=== PATIENT | male | born 1950 | race Caucasian/White ===

== ENCOUNTER 2017-06-02 09:35 | Emergency (ER) | payer MEDICARE, OTHER ==
[~2017-06-02] VITALS: Ht 180.3 cm; Wt 195.8 kg
[2017-06-02] MEDS ORDERED: AMLO10TA2 PO (09:59)
[2017-06-02] MEDS ORDERED: MULT1TAB11 PO (09:59)
[2017-06-02] MEDS ORDERED: BUPR150T3 PO (09:59)
[2017-06-02] MEDS ORDERED: SERT-138 PO (09:59)
[2017-06-02] MEDS ORDERED: LOSA25TA8 PO (09:59)
[2017-06-02] MEDS ORDERED: COLE1TAB PO (09:59)
[2017-06-02 11:47] VITALS: BP 141/68
== END 2017-06-02 11:48 | disposition home or self-care (01) ==
LOC: M ED 09:35
DX: S60.478A Other superficial bite of other finger, initial encounter (principal); W55.51XA Bitten by raccoon, initial encounter; Y92.89 Other specified places as the place of occurrence of the external cause; Y93.89 Activity, other specified; Y99.9 Unspecified external cause status

== ENCOUNTER → 2019-10-31 | Outpatient (CLI) | payer MEDICARE ==
[~2019-10-31] MED LIST: AMLO10TA5 PO; BUPR150T3 PO; COLE1TAB PO; LIDOCAINE 1% MDV 20ML VIAL As Ordered ONE; LOSA25TA14 PO; MULT1TAB11 PO; SERT-138 PO; VITA250011 SL
[2019-10-31 14:45] VITALS: BP 138/72
--- NOTE | 2019-10-31 15:17 | REP ---
POSTBIOPSY MAMMOGRAM, LEFT BREAST: ML and CC views of the left breast are performed status post ultrasound-guided biopsy of a nodule in the retroareolar region. A metallic clip is seen in the nodule. Electronically Signed by Clement Beck MD 10/31/2019 04:59 P
--- NOTE | 2019-10-31 15:37 | POST-OPPD ---
Postoperative Procedure Note Date Of Procedure: Oct 31, 2019 Time Of Procedure: 14:00 PREOPERATIVE DIAGNOSIS: Left breast mass POSTOPERATIVE DIAGNOSIS: Left breast mass FINDINGS: left breast mass 12:00 measuring 2 cm , successful biopsy of the lesion, 4 cores sent, successful placement of clip, left post procedure mammogram showed clip in the expected position PROCEDURE: ultrasound guided left breast mass biopsy SURGEON: Ildefonso Ruffin HANDTOOLS REPAIRER: ANESTHESIA: local anesthesia - 1% lidocaine 10 ml SPECIMENS: Left breast mass, 4 core biopsies ESTIMATED BLOOD LOSS: minimal DRAINS: none COMPLICATIONS: none POSTOPERATIVE CONDITION: excellent, patient tolerated procedure well ILDEFONSO RUFFIN DO Oct 31, 2019 15:37
--- NOTE | 2019-10-31 16:06 | ROOPDOC ---
[facility] Report Of Operation Report of Operation DATE OF PROCEDURE: 10/31/19 PREPROCEDURE DIAGNOSES: Left breast mass POSTPROCEDURE DIAGNOSES: Left breast mass PROCEDURE: Ultrasound guided biopsy of the left breast mass SURGEON: Ildefonso Berry DO RETAIL SALES ASSISTANT: ANESTHESIA: Local anestesia with 1 % Lidocaine, 10 ml used ESTIMATED BLOOD LOSS: minimal COMPLICATIONS: none REMARKS: successful biopsy of left breast mass, sucessful placement of the clip into left breast mass, postprocedure mammogram confirmed clip placement in expected position PROCEDURE NOTE: Informed consent was obtained in the preop area. The most common risk and possible complications including bleeding, hematoma, bruising, infection, injury to surrounding structures were explained to the patient and he expressed understanding. Patient was taken to the procedure room and placed on the bed in the supine position with the left upper extremity placed above the head. Appropriate time out was done stating patients name, date of , and the procedure to be performed. The left breast was prepped and draped in the usual fashion. The ultrasound was used to confirm the location of the lesion in the left breast at 12:00, on the superior portion of the areola, 1 centimeter from the nipple. Plane Lidocaine 1% was used to numb the skin, the biopsy site and tissues along the anticipated biopsy tract. Small skin incision was made with blade number 11. BARD 22 mm biopsy gun was inserted through the incision and advanced under the ultrasound guidance to position immediately adjacent to the lesion. Pre-biopsy imaging, and post-biopsy imaging was captured. Four biopsies were taken posterior, superior, and two middle sites of the lesion. Next, the biopsy device was withdrawn and a clip introducer was inserted into the biopsy site. The clip was deployed under direct vision. Post-clip placement image was captured. Manual pressure over the biopsy cavity and tract was held after the clip introducer was withdrawn. No bleeding was noted upon removal of the pressure. Postprocedural dressing was placed. Post-biopsy mammogram of the left breast was obtained and showed clip in expected position. Patient tolerated procedure well and was taken to the recovery unit in stable condition. Discharge instructions were discussed with the patient and he expressed understanding. ILDEFONSO Mayen DO Oct 31, 2019 16:06
--- NOTE | 2019-11-06 12:28 | REP ---
LEFT BREAST SONOGRAPHY: Ultrasound guidance. HISTORY: Left breast needle biopsy procedure. FINDINGS: Ultrasound guidance is provided to Dr. Jamal wiseman for ultrasound-guided needle biopsy procedure. Electronically Signed by Lucien Bajwa MD 11/06/2019 05:58 P
== END ==
LOC: M IRPRO 13:22
PROVIDERS: ATTEND Surgery
DX: N62 Hypertrophy of breast (principal)

== ENCOUNTER → 2019-11-15 | Outpatient (REF) | payer MEDICARE ==
[~2019-11-15] MED LIST changes: -LIDOCAINE 1% MDV 20ML VIAL As Ordered ONE
== END ==
LOC: M LAB REF 16:51
PROVIDERS: ATTEND Family Medicine
DX: Z01.818 Encounter for other preprocedural examination (principal)

== ENCOUNTER 2019-12-12 06:07 | Day surgery (SDC) | payer MEDICARE ==
[~2019-12-12] VITALS: Ht 180.3 cm; Wt 92.1 kg
[~2019-12-12 06:07] MED LIST changes: +LIDOCAINE 1% MDV 20ML VIAL SQ PRN; +MULTCAP PO; +OMEP40CA97 PO; +OSTETAB2 PO; +PRAV20TA2 PO; +ceFAZolin SOD 2 GM in IV 1 EA IV ONE
[2019-12-12] MEDS ORDERED: LIDOCAINE 1% SDV INJ 30 ML VIAL As Ordered ONE (07:15)
[2019-12-12] MEDS ORDERED: BUPIVACAINE HCL 0.25% 30 ML VIAL As Ordered ONE (07:15)
[2019-12-12] MEDS ORDERED: LR 1,000 ML IV ONE (07:45)
[2019-12-12] MEDS ORDERED: fentaNYL 100 MCG/2 ML INJECTION (J3010) As Ordered ONE (07:58)
[2019-12-12] MEDS ORDERED: propofoL 200 MG/20 ML VIAL As Ordered ONE (07:58)
[2019-12-12] MEDS ORDERED: LIDOCAINE 2% INJ 100 MG/5 ML SDV (FOR ANES.) As Ordered ONE (07:58)
[2019-12-12] MEDS ORDERED: MIDAZOLAM INJ 2 MG/2 ML VIAL (J2250) As Ordered ONE (07:58)
[2019-12-12] MEDS ORDERED: ONDANSETRON 4MG/2ML VIAL (J2405) As Ordered ONE (08:05)
[2019-12-12] MEDS ORDERED: KETOROLAC 60 MG/2 ML VIAL (J1885) As Ordered ONE (08:05)
[2019-12-12] MEDS ORDERED: dexameTHASONE 4 MG/ML 1ML VIAL (J1100) As Ordered ONE (08:06)
[2019-12-12] MEDS ORDERED: ePHEDrine SULFATE 25 MG/5 ML(5MG/ML) SYRINGE As Ordered ONE (08:20)
[2019-12-12] MEDS ORDERED: PHENYLephrine HCL 500 MCG/5 ML (100MCG/ML) SYRINGE (J2370) As Ordered ONE (08:20)
[2019-12-12] MEDS ORDERED: ULTR50TA8 PO (09:49)
[2019-12-12] MEDS ORDERED: PERCOCET 5MG/325MG TAB PO PRN (10:00)
[2019-12-12] MEDS ORDERED: fentaNYL 100 MCG/2 ML INJECTION (J3010) IV PRN (10:00)
[2019-12-12] MEDS ORDERED: ONDANSETRON 4MG/2ML VIAL (J2405) IV PRN (10:00)
[2019-12-12] MEDS ORDERED: HYDROMORPHONE HCL 0.5 MG/ 0.5 ML SYRINGE (J1170 PER 1) IV PRN (10:00)
[2019-12-12] MEDS ORDERED: LR 1,000 ML IV SCH (10:00)
[2019-12-12 10:10] VITALS: BP 143/69
--- NOTE | 2019-12-12 18:29 | REP ---
Specimen radiography: Eight views. History: Painful gynecomastia left breast. Status post resection. Preliminary report was telephoned to the referring surgeon at the time of the study. Findings: Specimen radiography shows no evidence of microcalcification. No microcalcifications were noted in vivo on comparison mammography October 31, 2019. The final specimen radiograph demonstrates the marker clip separately placed on the grid. Impression: Specimen radiography demonstrates that the marker clip has been removed in conjunction with the surgical excision. Electronically Signed by Lucien Bajwa MD 12/13/2019 08:09 A
--- NOTE | 2019-12-12 20:12 | ROOPDOC ---
[facility] Report Of Operation Report of Operation DATE OF PROCEDURE: 12/12/19 PREPROCEDURE DIAGNOSES: Left breast painful gynecomastia and left nipple changes POSTPROCEDURE DIAGNOSES: same PROCEDURE: Left breast lumpectomy and biopsy of left nipple SURGEON: Ildefonso Ruffin D.O TERRAZZO LAYER: Harini Rayo D.O. ANESTHESIA: general ESTIMATED BLOOD LOSS: Approximately 5 mL. COMPLICATIONS: none REMARKS: clip was identified separately DESCRIPTION OF PROCEDURE: INDICATIONS: Mr. Brink is a 69 year old gentleman who presented to clinic with painful left breast lump and nipple soreness. Patient was evaluated with mammogram which showed atypical presentation of gynecomastia on the left side. Ultrasound guided biopsy of the left breast lump was done and showed gynecomastia. Clip was placed at the time of biopsy. Patient was offered nipple punch biopsy in the office but he opted to have it done at the time of gynecomastia excision. He was medically cleared by his primary foster care social worker. Risks and possible complications of surgical procedure including bleeding, infection and injury to surrounding structures were explained to the patient and he wished to proceed. Consent was signed. The site of palpable lump was marked. DETAILS: Patient was taken to the operating room and placed supine on the operating room table. A sign in was called stating patients name, date of and the procedure to be done. Preoperative antibiotics were infused. Smooth induction of general anesthesia was done. Patients hands were extended on arm rests and placed in the protective foam. Care was taken not to over extend patients arms. Patients left breast was prepped and draped in the usual fashion. The left gynecomastia tissue was located with ultrasound perioperatively. It was found to be relatively superficial under the nipple. The left nipple changes were also noted. Appropriate time out was done and patients name, date of , and the procedure to be done were confirmed. Local anesthetic using 1% lidocaine and 0.25 % Marcaine 50/50 mix was injected to create a field block. Procedure was started with full depth wedge nipple biopsy at the inferior aspect of the nipple done with a scalpel number 15. The specimen was labeled with patients name and sent to pathology. The defect was repaired by Dr Rayo with 4-0 Monocryl and 5-0 Chromic suture. Next, lateral periareolar incision was made with a scalpel number 15. Small subcutaneous flaps were raised. Glandular tissue was identified by palpation and resected as a one specimen. The specimen was then carefully inked following the standard ink colors for specific breast specimen sites. The specimen was then labeled with patients name and placed into Black coin intraop imaging device. No clip was seen in the specimen. We looked for the clip in the operative field and at the instrument table. We were able to find clip stuck to one of the sponges. Clip was X-rayed and Radiology was called to confirm that it is the same shape clip that was placed at the time of biopsy. After this confirmation was obtained, the specimen was sent to pathology. The resection cavity was inspected for bleeding and appropriate hemostasis was achieved. Additional local anesthetic was given to surrounding tissues. Wound was irrigated. The deep layers were approximated with 3-0 Vicryl stitch to obliterate the space and to decrease possible breast deformity formation. The dermis was closed with 3-0 Monocryl and skin was closed with 4-0 Monocryl. Steri strips were placed over the incision. Patient emerged from the anesthesia without any problems. Fluffs were placed over the operating site and patients upper chest was wrapped snuggly in the GRACIELA wrap. Patient tolerated procedure well and was taken to recovery unit in stable condition. ILDEFONSO RUFFIN DO Dec 12, 2019 20:12
== END 2019-12-12 10:57 | disposition home or self-care (01) ==
LOC: M SDC 06:07
PROVIDERS: ATTEND Surgery
DX: N62 Hypertrophy of breast (principal); I10 Essential (primary) hypertension; K21.9 Gastro-esophageal reflux disease without esophagitis; F41.9 Anxiety disorder, unspecified; F32.9 Major depressive disorder, single episode, unspecified; Z79.899 Other long term (current) drug therapy
CPT/HCPCS: 19300; 76098; 88305; 88307; J0690; J1100; J2250; J2370; J2405; J3010

== ENCOUNTER → 2020-05-02 | Outpatient (CLI) | payer MEDICARE ==
[~2020-05-02] MED LIST changes: -LIDOCAINE 1% MDV 20ML VIAL SQ PRN; +ULTR50TA8 PO; -ceFAZolin SOD 2 GM in IV 1 EA IV ONE
[2020-05-02 12:43] LABS: BLOOD UREA NITROGEN 13 MG/DL (7-18); CREATININE FOR GFR 0.69 MG/DL (0.70-1.30); GLOMERULAR FILTRATION RATE > 60.0 (>42)
== END ==
LOC: M LAB 10:27
PROVIDERS: ATTEND Otolaryngology
DX: R22.1 Localized swelling, mass and lump, neck (principal)

== ENCOUNTER → 2020-05-06 | Outpatient (CLI) | payer MEDICARE ==
[~2020-05-06] MED LIST changes: +ISOVUE-370 76% 100ML VIAL As Ordered ONE
--- NOTE | 2020-05-10 08:16 | REP ---
CT NECK SOFT TISSUES: 05/06/2020 INDICATION: Neck swelling. COMPARISON: None. FINDINGS: There is no abnormal soft tissue mass, fluid collection or cervical lymphadenopathy with the exception of the small lentiform configured temporal region lipoma on the right. The airway is patent. Bilateral atherosclerotic disease is present more pronounced on the right without evidence of hemodynamically significant stenosis by this technique. The visualized lungs are essentially clear. Multilevel cervical spondylosis is present most pronounced at C6-C7. IMPRESSION: No significant abnormal soft tissue mass, fluid collection or cervical lymphadenopathy. Electronically Signed by James Garcia DO 05/10/2020 01:08 P
== END ==
LOC: M RAD 10:27
PROVIDERS: ATTEND Otolaryngology
DX: R22.1 Localized swelling, mass and lump, neck (principal)
CPT/HCPCS: 70491; Q9967

== ENCOUNTER → 2021-02-04 | Outpatient (CLI) | payer MEDICARE ==
[~2021-02-04] MED LIST changes: -AMLO10TA5 PO; +AMLO1TAB25 PO; +BUPR150T12 PO; -BUPR150T3 PO; -ISOVUE-370 76% 100ML VIAL As Ordered ONE
--- NOTE | 2021-02-04 11:11 | REP ---
INDICATION: RIGHT KNEE PAIN. COMPARISON: None. TECHNIQUE: AP, lateral, tunnel and sunrise views of the right knee FINDINGS: Early advanced tricompartmental osteoarthritic degenerative changes. Findings include subchondral sclerosis, joint space narrowing, osteophytosis and minimal chondrocalcinosis. No acute fracture or dislocation. No effusion. IMPRESSION: Early advanced tricompartmental osteoarthritic degenerative changes. <Electronically signed by Rafael Mayberry > 02/04/21 [id number]
== END ==
LOC: M SOG 10:39
PROVIDERS: ATTEND Orthopaedic Surgery Sports Medicine
DX: M17.11 Unilateral primary osteoarthritis, right knee (principal)

== ENCOUNTER → 2021-05-07 | Outpatient (CLI) | payer MEDICARE ==
[~2021-05-07] MED LIST changes: +ISOVUE-300 61% 50ML VIAL As Ordered ONE; +LIDOCAINE 1% MDV 20ML VIAL As Ordered ONE; +methylPREDNISolone SUSP 40MG/ML 1ML VIAL (DEPO MEDROL) As Ordered ONE
--- NOTE | 2021-05-07 17:45 | REP ---
INDICATION: OSTEOARTHITIS RT HIP. COMPARISON: None. TECHNIQUE: The procedure was performed under the direct supervision of Dr. Beck. The benefits and risks including but not limited to pain infection and bleeding and anaphylaxis were explained to the patient and informed consent was obtained. The right femoral neck was localized using fluoroscopic guidance. The skin was prepped and draped in a sterile fashion. 1% lidocaine was used as a local anesthetic. Using fluoroscopic guidance, and last image hold technology, a 22-gauge spinal needle was inserted and advanced to the femoral neck. 0.5 ml of Isovue-300 was injected to verify placement. Seven ml of a solution containing 5 ml of 1% Xylocaine and 2 mL of Depo-Medrol 40 mg was injected. The needle was then removed. The patient tolerated the procedure well and there were no immediate complications. Less than 6 seconds of fluoro time was utilized for this procedure. FINDINGS: None IMPRESSION: Fluoro guidance for right hip injection. <Electronically signed by Matt Brown > 05/07/21 [id number] <Electronically signed by Clement Beck > 05/07/21 [id number]
== END ==
LOC: M RADPRO 12:13
PROVIDERS: ATTEND Physician Assistant
DX: M16.11 Unilateral primary osteoarthritis, right hip (principal)
CPT/HCPCS: 20610; 77002; J1030; Q9967

== ENCOUNTER → 2022-03-17 | Outpatient (CLI) | payer MEDICARE ==
[~2022-03-17] MED LIST changes: -ISOVUE-300 61% 50ML VIAL As Ordered ONE; -LIDOCAINE 1% MDV 20ML VIAL As Ordered ONE; +LOSA25TA13 PO; -LOSA25TA14 PO; +OMEP40CA4 PO; -OMEP40CA97 PO; -methylPREDNISolone SUSP 40MG/ML 1ML VIAL (DEPO MEDROL) As Ordered ONE
[2022-03-17 12:19] LABS: HEMATOCRIT 40.9 % (42.0-52.0); HEMOGLOBIN 13.1 g/dl (13.5-17.5); MEAN CORPUSCULAR VOLUME 93.6 fl (80.0-96.0); PLATELET COUNT, AUTOMATED 150 10^3/uL (150-450); RED BLOOD COUNT 4.37 10^6/uL (4.30-6.10); WHITE BLOOD COUNT 8.1 10^3/uL (4.0-10.0)
[2022-03-17 12:54] LABS: ALBUMIN 3.9 GM/DL (3.2-5.2); ALT/SGPT 62 U/L (12-78); BILIRUBIN,TOTAL 0.4 MG/DL (0.2-1.0); BLOOD UREA NITROGEN 13 MG/DL (7-18); CALCIUM LEVEL 9.2 MG/DL (8.8-10.2); CARBON DIOXIDE LEVEL 28 MEQ/L (21-32); CHLORIDE LEVEL 107 MEQ/L (98-107); CHOLESTEROL LEVEL 226 MG/DL (<200); CHOLESTEROL RISK RATIO 2.973 (<5); CREATININE FOR GFR 0.69 MG/DL (0.70-1.30); GLOMERULAR FILTRATION RATE > 60.0 (>42); GLUCOSE, FASTING 127 MG/DL (70-100); HDL CHOLESTEROL 76 MG/DL (>40); LDL CHOLESTEROL 121 MG/DL (<100); NON-HDL-C 150 MG/DL; SODIUM LEVEL 140 MEQ/L (136-145); TOTAL PROTEIN 7.3 GM/DL (6.4-8.2); TRIGLYCERIDES LEVEL 144 MG/DL (<150)
[2022-03-17 13:00] LABS: HEMOGLOBIN A1c 5.6 %
== END ==
LOC: M WUC 09:20
PROVIDERS: ATTEND Family Medicine
DX: R05.9 Cough, unspecified (principal); I10 Essential (primary) hypertension; R73.01 Impaired fasting glucose

== ENCOUNTER → 2022-08-20 | Outpatient (CLI) | payer MEDICARE ==
[2022-08-20 16:38] LABS: BASO % 0.3 % (0.0-1.0); EOS # 0.2 10^3/uL (0.0-0.5); EOS % 1.8 % (0.0-3.0); HEMATOCRIT 42.8 % (42.0-52.0); HEMOGLOBIN 13.5 g/dl (13.5-17.5); LYMPH # 0.9 10^3/uL (1.5-5.0); LYMPH % 9.9 % (24.0-44.0); MEAN CORPUSCULAR HEMOGLOBIN 29.2 pg (27.0-33.0); MEAN CORPUSCULAR HGB CONC 31.5 g/dl (32.0-36.5); MEAN CORPUSCULAR VOLUME 92.6 fl (80.0-96.0); MONO # 0.8 10^3/uL (0.0-0.8); MONO % 8.5 % (2.0-8.0); NEUTROPHILS % 78.4 % (36.0-66.0); PLATELET COUNT, AUTOMATED 176 10^3/uL (150-450); RED BLOOD COUNT 4.62 10^6/uL (4.30-6.10)
[2022-08-20 17:11] LABS: PERCENT SATURATION 17.4 % (19.7-50.0)
== END ==
LOC: M WUC 13:40
PROVIDERS: ATTEND Orthopaedic Surgery
DX: M25.561 Pain in right knee (principal)

== ENCOUNTER → 2022-09-16 | Outpatient (CLI) | payer MEDICARE ==
[2022-09-16 14:50] LABS: BASO % 0.2 % (0.0-1.0); EOS # 0.1 10^3/uL (0.0-0.5); EOS % 1.3 % (0.0-3.0); HEMATOCRIT 45.1 % (42.0-52.0); HEMOGLOBIN 14.1 g/dl (13.5-17.5); LYMPH # 1.1 10^3/uL (1.5-5.0); LYMPH % 12.5 % (24.0-44.0); MEAN CORPUSCULAR HEMOGLOBIN 29.4 pg (27.0-33.0); MEAN CORPUSCULAR HGB CONC 31.3 g/dl (32.0-36.5); MEAN CORPUSCULAR VOLUME 94.2 fl (80.0-96.0); MONO # 0.7 10^3/uL (0.0-0.8); MONO % 7.4 % (2.0-8.0); NEUTROPHILS # 6.8 10^3/uL (1.5-8.5); PLATELET COUNT, AUTOMATED 168 10^3/uL (150-450); RED BLOOD COUNT 4.79 10^6/uL (4.30-6.10); WHITE BLOOD COUNT 8.8 10^3/uL (4.0-10.0)
[2022-09-16 14:59] LABS: INR 0.98; PROTHROMBIN TIME 13.2 SECONDS (12.5-14.5)
[2022-09-16 15:00] LABS: PARTIAL THROMBOPLASTIN TIME 28.6 SECONDS (24.8-34.2)
[2022-09-16 15:14] LABS: APPEARANCE, URINE MANUAL CLEAR (CLEAR); COLOR, URINE MANUAL YELLOW (YELLOW)
[2022-09-16 15:15] LABS: BILIRUBIN, URINE MANUAL NEGATIVE (NEGATIVE); BLOOD URINE MANUAL NEGATIVE (NEGATIVE); GLUCOSE, URINE (UA) MANUAL NEGATIVE (NEGATIVE); KETONE, URINE MANUAL NEGATIVE (NEGATIVE); LEUKOCYTE ESTERASE, URINE MAN NEGATIVE (NEGATIVE); NITRITE, URINE MANUAL NEGATIVE (NEGATIVE); PROTEIN, URINE MANUAL NEGATIVE (NEGATIVE); UROBILINOGEN, URINE MANUAL NORMAL (NORMAL)
[2022-09-16 15:25] LABS: ALBUMIN 4.1 GM/DL (3.2-5.2); ALT/SGPT 54 U/L (12-78); BILIRUBIN,TOTAL 0.3 MG/DL (0.2-1.0); BLOOD UREA NITROGEN 16 MG/DL (7-18); CALCIUM LEVEL 9.5 MG/DL (8.8-10.2); CARBON DIOXIDE LEVEL 27 MEQ/L (21-32); CHLORIDE LEVEL 104 MEQ/L (98-107); CREATININE FOR GFR 0.73 MG/DL (0.70-1.30); GLOMERULAR FILTRATION RATE > 60.0 (>42); GLUCOSE, FASTING 97 MG/DL (70-100); POTASSIUM SERUM 4.6 MEQ/L (3.5-5.1); SODIUM LEVEL 137 MEQ/L (136-145); TOTAL PROTEIN 7.8 GM/DL (6.4-8.2)
== END ==
LOC: M EKG 13:45
PROVIDERS: ATTEND Family Medicine
DX: Z01.818 Encounter for other preprocedural examination (principal); Z79.899 Other long term (current) drug therapy

== ENCOUNTER → 2022-10-21 | Outpatient (CLI) | payer MEDICARE | LOC: M RAD 08:28 | PROVIDERS: ATTEND Family Medicine | DX: K40.90 Unilateral inguinal hernia, without obstruction or gangrene, not specified as recurrent (principal) ==

== ENCOUNTER 2023-09-06 08:54 | Day surgery (SDC) | payer MEDICARE ==
[~2023-09-06] VITALS: Ht 182.9 cm; Wt 87.5 kg
[~2023-09-06 08:54] MED LIST changes: +AMIO200T49 PO; +NS 1,000 ML IV ONE; +SERT50TA29 PO; +SILD100T PO; +VITMTA PO
[2023-09-06] MEDS ORDERED: propofoL 500 MG/50 ML VIAL As Ordered ONE (10:00)
[2023-09-06] MEDS ORDERED: LIDOCAINE 2% 100MG/5ML SDV (FOR ANES.) As Ordered ONE (10:00)
[2023-09-06] MEDS ORDERED: fentaNYL 100 MCG/2 ML INJECTION As Ordered ONE (10:04)
[2023-09-06 11:38] VITALS: TEMP 98.1
[2023-09-06 12:02] VITALS: BP 145/69; O2SAT 95
== END 2023-09-06 12:13 | disposition home or self-care (01) ==
LOC: M OPP 08:54
PROVIDERS: ATTEND Internal Medicine Gastroenterology
DX: Z86.010 Personal history of colon polyps (principal); K63.5 Polyp of colon; K57.30 Diverticulosis of large intestine without perforation or abscess without bleeding; K22.70 Barrett's esophagus without dysplasia; K22.89 Other specified disease of esophagus; Z79.02 Long term (current) use of antithrombotics/antiplatelets; Z79.1 Long term (current) use of non-steroidal anti-inflammatories (NSAID); Z79.811 Long term (current) use of aromatase inhibitors; Z79.899 Other long term (current) drug therapy
CPT/HCPCS: 43239; 45385; 88305; J3010

== ENCOUNTER 2024-08-14 11:44 | Emergency (ER) | payer MEDICARE, OTHER ==
[~2024-08-14] VITALS: Ht 180.3 cm; Wt 87.7 kg
[~2024-08-14 11:44] MED LIST changes: -NS 1,000 ML IV ONE
[2024-08-14 12:54] LABS: BASO % 0.2 % (0.0-1.0); EOS # 0.1 10^3/uL (0.0-0.5); EOS % 0.4 % (0.0-3.0); HEMATOCRIT 47.1 % (42.0-52.0); LYMPH % 7.3 % (24.0-44.0); MEAN CORPUSCULAR HEMOGLOBIN 30.2 pg (27.0-33.0); MEAN CORPUSCULAR HGB CONC 31.8 g/dl (32.0-36.5); MEAN CORPUSCULAR VOLUME 94.8 fl (80.0-96.0); MONO % 7.5 % (2.0-8.0); NEUTROPHILS # 11.3 10^3/uL (1.5-8.5); NEUTROPHILS % 83.3 % (36.0-66.0); PLATELET COUNT, AUTOMATED 215 10^3/uL (150-450); RED BLOOD COUNT 4.97 10^6/uL (4.30-6.10); WHITE BLOOD COUNT 13.6 10^3/uL (4.0-10.0)
[2024-08-14 13:04] LABS: INR 1.07; PROTHROMBIN TIME 13.5 SECONDS (12.5-14.5)
[2024-08-14 13:26] LABS: ALBUMIN 4.3 G/DL (3.2-5.2); ALKALINE PHOSPHATASE 111 U/L (46-116); ALT/SGPT 86 U/L (7.0-40); AST/SGOT 58 U/L (<34); BILIRUBIN,DIRECT 0.2 MG/DL (<0.4); BILIRUBIN,TOTAL 0.5 MG/DL (0.3-1.2); BLOOD UREA NITROGEN 14 MG/DL (9-23); CALCIUM LEVEL 9.5 MG/DL (8.3-10.6); CARBON DIOXIDE LEVEL 28 MMOL/L (20-31); CHLORIDE LEVEL 106 MMOL/L (98-107); CK-MB VALUE MASS < 1.0 NG/ML (<3.6); CREATININE FOR GFR 0.93 MG/DL (0.70-1.30); GLOMERULAR FILTRATION RATE > 60.0 (>42); GLUCOSE, FASTING 129 MG/DL (74-106); MAGNESIUM LEVEL 1.9 MG/DL (1.8-2.4); PHOSPHORUS LEVEL 3.4 MG/DL (2.4-5.1); SODIUM LEVEL 141 MMOL/L (136-145); TOTAL PROTEIN 7.9 G/DL (5.7-8.2)
[2024-08-14 13:27] LABS: FREE T4 1.41 NG/DL (0.89-1.76)
[2024-08-14 13:28] LABS: THYROID STIMULATING HORMONE 2.296 uIU/ML (0.55-4.78)
[2024-08-14 13:33] LABS: CPK CREATINE PHOSPHOKINASE 65 U/L (46-171); MB/CK RELATIVE INDEX 1.53 (< OR =4)
[2024-08-14 14:01] LABS: CK-MB VALUE MASS < 1.0 NG/ML (<3.6)
[2024-08-14 14:02] LABS: CPK CREATINE PHOSPHOKINASE 64 U/L (46-171); MB/CK RELATIVE INDEX 1.56 (< OR =4)
[2024-08-14 15:55] LABS: CK-MB VALUE MASS < 1.0 NG/ML (<3.6)
[2024-08-14 15:56] LABS: CPK CREATINE PHOSPHOKINASE 47 U/L (46-171); MB/CK RELATIVE INDEX 2.12 (< OR =4)
[2024-08-14] MEDS ORDERED: HOLTER MONITOR XX (16:02)
[2024-08-14 16:30] VITALS: BP 154/75; TEMP 97.7; O2SAT 96
== END 2024-08-14 16:40 | disposition home or self-care (01) ==
LOC: M ED 11:44
DX: I47.19 Other supraventricular tachycardia (principal); I10 Essential (primary) hypertension; F41.9 Anxiety disorder, unspecified; F32.A Depression, unspecified; Z79.899 Other long term (current) drug therapy

== ENCOUNTER → 2024-08-16 | Outpatient (CLI) | payer MEDICARE, OTHER ==
[~2024-08-16] MED LIST changes: +HOLTER MONITOR XX
== END ==
LOC: M EKG 08-14 16:44
PROVIDERS: ATTEND Emergency Medicine
DX: R00.2 Palpitations (principal); R00.8 Other abnormalities of heart beat

== ENCOUNTER 2025-10-11 12:41 | Emergency (ER) | payer OTHER, MEDICARE ==
[~2025-10-11] VITALS: Ht 180.3 cm; Wt 88.5 kg
[~2025-10-11 12:41] MED LIST changes: +ACET-910 PO; -AMIO200T49 PO; +AMIO200T54 PO; +CELE100C PO; -PRAV20TA2 PO; +PRAV20TA78 PO; +TRAM50TA2 PO
[2025-10-11 12:44] VITALS: TEMP 99.7
[2025-10-11 13:24] LABS: BASO # 0.0 10^3/uL (0.0-0.2); BASO % 0.3 % (0.0-1.0); EOS # 0.2 10^3/uL (0.0-0.5); EOS % 1.7 % (0.0-3.0); LYMPH # 1.2 10^3/uL (1.5-5.0); LYMPH % 11.5 % (24.0-44.0); MONO # 0.8 10^3/uL (0.0-0.8); MONO % 8.1 % (2.0-8.0); NEUTROPHILS # 7.9 10^3/uL (1.5-8.5); NEUTROPHILS % 77.8 % (36.0-66.0); PLATELET COUNT, AUTOMATED 211 10^3/uL (150-450)
[2025-10-11 13:51] LABS: CALCIUM LEVEL 9.0 MG/DL (8.3-10.6); CARBON DIOXIDE LEVEL 24 MMOL/L (20-31); CHLORIDE LEVEL 106 MMOL/L (98-107); CREATININE FOR GFR 0.82 MG/DL (0.70-1.30); GLOMERULAR FILTRATION RATE > 90.0 (>42); MAGNESIUM LEVEL 2.1 MG/DL (1.8-2.4); POTASSIUM SERUM 4.6 MMOL/L (3.5-5.1); SODIUM LEVEL 143 MMOL/L (136-145)
[2025-10-11 13:52] LABS: CK-MB VALUE MASS 1.4 NG/ML (<3.6)
[2025-10-11 13:55] LABS: CPK CREATINE PHOSPHOKINASE 97 U/L (46-171); MB/CK RELATIVE INDEX 1.44 (< OR =4)
[2025-10-11] MEDS ORDERED: ADENOSINE 6 MG/2 ML INJECTION As Ordered ONE (13:58)
[2025-10-11] MEDS: ADENOSINE 6 MG/2 ML INJECTION IV STA ×2 (14:10→14:19)
[2025-10-11] MEDS: AMIODARONE HCL 150 MG in IV 1 EA IV ONE ×2 (14:34→16:02)
[2025-10-11] MEDS ORDERED: LOPE1CAP5 PO (14:45)
[2025-10-11] MEDS ORDERED: ASPI81CH33 PO (14:45)
[2025-10-11] MEDS ORDERED: PRAV80TA75 PO (14:45)
[2025-10-11] MEDS ORDERED: ACET500T15 PO (14:45)
[2025-10-11] MEDS ORDERED: FAMO20TA PO (14:45)
[2025-10-11] MEDS ORDERED: VITA1TAB82 PO (14:45)
[2025-10-11] MEDS ORDERED: ATEN25TA PO (14:45)
[2025-10-11] MEDS ORDERED: CIAL20TA PO (14:45)
[2025-10-11] MEDS ORDERED: DULO1CAP6 PO (14:45)
[2025-10-11] MEDS ORDERED: REFR0.5D8 OU (14:45)
[2025-10-11] MEDS ORDERED: TRAM50TA2 PO (14:45)
[2025-10-11] MEDS ORDERED: JARD1TAB3 PO (14:45)
[2025-10-11] MEDS ORDERED: MULT-90 PO (14:45)
[2025-10-11] MEDS ORDERED: CELE0.09 PO (14:45)
[2025-10-11] MEDS ORDERED: PRIM50TA6 PO (14:45)
[2025-10-11] MEDS ORDERED: D 101000 PO (14:45)
[2025-10-11] MEDS ORDERED: KETO2CR TOP (15:07)
[2025-10-11] MEDS ORDERED: HOME MED LIST COMPLETE! XX SCH (15:10)
[2025-10-11] MEDS: METOPROLOL 5 MG/5 ML VIAL IV STA (17:38)
[2025-10-11] MEDS: METOPROLOL TART 50 MG TAB PO ONE (19:31)
[2025-10-11 19:32] VITALS: BP 146/89
[2025-10-11] MEDS: METOPROLOL 5 MG/5 ML VIAL IV SCH (19:32)
[2025-10-11 20:30] VITALS: O2SAT 96
[2025-10-11] MEDS ORDERED: LOPR1TAB6 PO (20:32)
[2025-10-11 20:35] VITALS: BP 146/77
== END 2025-10-11 20:45 | disposition home or self-care (01) ==
LOC: M ED 12:41
DX: I47.10 Supraventricular tachycardia, unspecified (principal); I48.91 Unspecified atrial fibrillation; I10 Essential (primary) hypertension; E78.5 Hyperlipidemia, unspecified; I45.10 Unspecified right bundle-branch block; F10.10 Alcohol abuse, uncomplicated; Z79.899 Other long term (current) drug therapy
CPT/HCPCS: 71045; 80048; 82550; 82553; 83735; 84443; 84484; 85025; 93005; 93041; 94760; 96374; 96375; 96376; 99285; J0153; J0282; J0616